=== PATIENT | female | born 1960 | race Asian ===

== ENCOUNTER 2017-11-16 01:06 | Emergency (ER) | payer OTHER ==
[~2017-11-16] VITALS: Ht 162.6 cm; Wt 73.5 kg
[2017-11-16 01:22] VITALS: Ht 162.6 cm; Wt 73.5 kg
[2017-11-16 03:37] VITALS: BP 123/79
== END 2017-11-16 03:37 | disposition home or self-care (01) ==
LOC: ED 01:06
DX: T78.1XXA Other adverse food reactions, not elsewhere classified, initial encounter (principal); X58.XXXA Exposure to other specified factors, initial encounter; Z88.6 Allergy status to analgesic agent; E78.00 Pure hypercholesterolemia, unspecified
CPT/HCPCS: J0171; J1100; J3490; J7030; Q0163